=== PATIENT | female | born 1955 | race Caucasian/White ===

== ENCOUNTER 2017-06-27 07:43 | Emergency (ER) | END 2017-06-27 11:38 | disposition home or self-care (01) ==

== ENCOUNTER 2017-06-30 08:40 | Emergency (ER) | payer MEDICAID ==
[~2017-06-30] VITALS: Wt 61.0 kg
[~2017-06-30 08:40] MED LIST: ACET500C5 PO; ELEC100080 PO; IBUP-1542 PO; UDROBDM PO
[2017-06-30] MEDS ORDERED: ACETAMINOPHEN 500 MG TAB PO STA (09:15)
[2017-06-30] MEDS ORDERED: SOD CHLORIDE 0.9% 1,000 ML IV STA (09:15)
[2017-06-30 09:44] LABS: ADD UMIC NO; UR ASCORBIC ACID NEGATIVE (NEGATIVE); UR BILIRUBIN (Dip) NEGATIVE (NEGATIVE); UR BLOOD (Dip) NEGATIVE (NEGATIVE); UR CLARITY CLEAR (CLEAR); UR COLOR YELLOW (YELLOW); UR GLUCOSE (Dip) NEGATIVE (NEGATIVE); UR KETONES (Dip) NEGATIVE (NEGATIVE); UR LEUKOCYTE ESTERASE (Dip) NEGATIVE Leu/ul (NEGATIVE); UR NITRITE (Dip) NEGATIVE (NEGATIVE); UR SPECIFIC GRAVITY (Dip) 1.013 (1.003-1.030); UR TOTAL PROTEIN (Dip) NEGATIVE (NEGATIVE); UR UROBILINOGEN (Dip) 1+ mg/dL (NEGATIVE)
[2017-06-30 09:46] LABS: HEMOGLOBIN 12.7 g/dl (12.0-16.0); LYMPHOCYTES # 0.6 10^3/ul (0.8-2.9); RED CELL DISTRIBUTION WIDTH 12.8 % (11.5-14.5)
[2017-06-30 09:48] LABS: ABNORMAL IP MESSAGE 1
[2017-06-30 09:53] LABS: WHITE BLOOD COUNT 5.2 10^3/ul (4.8-10.8)
[2017-06-30 09:54] LABS: EOSINOPHILS % 0.2 % (0.0-7.0); HEMATOCRIT 36.5 % (37.0-47.0); LYMPHOCYTES % 10.7 % (15.0-51.0); MEAN CORPUSCULAR HEMOGLOBIN 33.7 pg (29.0-33.0); MEAN CORPUSCULAR HGB CONC 34.8 g/dl (32.0-37.0); MEAN CORPUSCULAR VOLUME 96.8 fl (82.0-101.0); MEAN PLATELET VOLUME 11.6 fl (7.4-10.4); MONOCYTE # 0.4 10^3/ul (0.3-0.9); MONOCYTES % 8.2 % (0.0-11.0); NEUTROPHIL # 4.2 10^3/ul (1.6-7.5); NEUTROPHILS % 80.5 % (39.0-77.0); PLATELET COUNT 128 10^3/UL (140-415); POSITIVE DIFF @See below; RED BLOOD COUNT 3.77 10^6/ul (4.20-5.40)
--- NOTE | 2017-06-30 10:16 | RADRPT ---
PROCEDURE: XR Chest. CLINICAL INDICATION: Shortness of breath TECHNIQUE: Single portable view of the chest was obtained COMPARISON: No priors for comparison FINDINGS: The trachea is midline. The cardiac silhouette and pulmonary vascularity are within normal limits. T he lungs are clear. The costophrenic angles are sharp. IMPRESSION: 1. No evidence of acute cardiopulmonary disease. RPTAT: AAPP Physician Ronny Date Time Electronically viewed and signed by Yuridia Crawford Physician on 06/30/2017 10:16 JL/
[2017-06-30 10:37] LABS: CALCIUM 9.2 mg/dl (8.4-10.2); CREATININE 0.65 mg/dl (0.44-1.00); POTASSIUM 4.1 mmol/L (3.5-5.1)
[2017-06-30] MEDS ORDERED: FLUT9.9S NASAL (10:48)
[2017-06-30] MEDS ORDERED: CETI10CA PO (10:48)
[2017-06-30] MEDS ORDERED: GUAI118L22 PO (10:48)
[2017-06-30 10:51] VITALS: BP 106/65; PULSE 76; RESP 18; TEMP 99.2
--- NOTE | 2017-06-30 11:06 | ERD ---
ER Documentation Chief Complaint Chief Complaint cough x 5 days HPI 61-year-old female comes emergency department with chief complaint of cough, congestion for about 5 days, she developed a fever yesterday. The patient states that she was seen here 2 days ago and was told that it was likely viral, and she is taking Tylenol and ibuprofen but states that her cough has not become better. The last time she took Tylenol was yesterday afternoon. She reports body aches, sore throat, congestion, dry cough. No hemoptysis, chest pain, shortness of breath. ROS All systems reviewed and are negative except as per history of present illness. Medications Home Meds Active Scripts Fluticasone Propionate (Flonase Allergy Relief) 9.9 Ml [place].susp, 1 SPRAY NASAL BID, #1 BOTTLE TO EACH NOSTRIL Prov:ALLEGRA CASTILLO PA-C 06/30/17 Cetirizine Hcl* (Zyrtec*) 10 Mg Capsule, 10 MG PO DAILY, #10 TAB.CHEW Prov:ALLEGRA CASTILLO PA-C 06/30/17 Guaifenesin/Codeine Phosphate (CHERATUSSIN AC SYRUP) 118 Ml Liquid, 5 ML PO Q4H Y for COUGH, #118 ML Prov:ALLEGRA CASTILLO PA-C 06/30/17 Guaifenesin-Dextromethorphan* (Robitussin* DM) 100MG/10MG/5ML Syrup, 10 ML PO Q6H Y for COUGH for 5 Days, ML Prov:SON GARSIA PA-C 06/27/17 Electrolyte,Oral (Pedialyte) 1,000 Ml Solution, 100 ML PO Q6 Y for FEVER, #1000 ML Prov:SON GARSIA PA-C 06/27/17 Acetaminophen* (Tylophen*) 500 Mg Capsule, 1 CAP PO Q6H Y for PAIN AND OR ELEVATED TEMP, #30 CAP Prov:SON GARSIA PA-C 06/27/17 Ibuprofen* (Motrin*) 600 Mg Tab, 600 MG PO Q6, #30 TAB Prov:SON GARSIA PA-C 06/27/17 Allergies Allergies: Coded Allergies: No Known Allergy (Unverified , 06/30/17) PMhx/Soc Medical and Surgical Hx: pt denies Medical Hx History of Surgery: Yes (Normal delivery x3) Anesthesia Reaction: No Hx Alcohol Use: No Hx Substance Use: No Hx Tobacco Use: No Smoking Status: Never smoker Physical Exam Vitals Vital Signs Date Time Temp Pulse Resp B/P Pulse Ox O2 Delivery O2 Flow Rate FiO2 06/30/17 10:51 99.2 76 18 106/65 100 Room Air 06/30/17 08:47 101.5 100 24 143/75 98 Physical Exam General: Well-developed, well-nourished. The patient appears in no acute distress. HEENT: Head is normocephalic, atraumatic. No scleral icterus. Pupils are equal , round, and reactive. Oral mucous membranes are moist. No pharyngeal erythema. Neck: Supple. Nontender. Lungs: Clear to auscultation. Normal air movement. Heart: Regular rate and rhythm. S1 and S2 are normal. No murmurs, gallops, or rubs. Abdomen: Soft, nontender, nondistended. Bowel sounds are normoactive. Extremities: No clubbing or cyanosis. Normal pulses. Moving extremities x 4. No weakness. Neurologic: Alert and oriented 3. No focal deficits. Skin: Normal turgor. No rash or lesions. Result Diagram: 06/30/1792906/30/1730 Results 24 hrs Laboratory Tests Test 06/30/17 09:25 06/30/17 09:30 Urine Color YELLOW Urine Clarity CLEAR Urine pH 7.0 Urine Specific [place] 1.013 Urine Ketones NEGATIVEmg/dL Urine Nitrite NEGATIVEmg/dL Urine Bilirubin NEGATIVEmg/dL Urine Urobilinogen 1+mg/dL Urine Leukocyte Esterase NEGATIVELeu/ul Urine Hemoglobin NEGATIVEmg/dL Urine Glucose NEGATIVEmg/dL Urine Total Protein NEGATIVEmg/dl White Blood Count 5.210^3/ul Red Blood Count 3.7710^6/ul Hemoglobin 12.7g/dl Hematocrit 36.5% Mean Corpuscular Volume 96.8fl Mean Corpuscular Hemoglobin 33.7pg Mean Corpuscular Hemoglobin Concent 34.8g/dl Red Cell Distribution Width 12.8% Platelet Count 39846^3/UL Mean Platelet Volume 11.6fl Neutrophils % 80.5% Lymphocytes % 10.7% Monocytes % 8.2% Eosinophils % 0.2% Basophils % 0.0% Nucleated Red Blood Cells % 0.0/100WBC Neutrophils # 4.210^3/ul Lymphocytes # 0.610^3/ul Monocytes # 0.410^3/ul Eosinophils # 0.010^3/ul Basophils # 0.010^3/ul Nucleated Red Blood Cells # 0.010^3/ul Sodium Level 138mmol/L Potassium Level 4.1mmol/L Chloride Level 102mmol/L Carbon Dioxide Level 25mmol/L Anion Gap 15 Blood Urea Nitrogen 5mg/dl Creatinine 0.65mg/dl Glucose Level 102mg/dl Calcium Level 9.2mg/dl Current Medications Medications (Trade) Dose Ordered Sig/Hamida Route PRN Reason Start Time Stop Time Status Last Admin Dose Admin Sodium Chloride (NS) 1,000 ml @ 1,000 mls/hr Q1H STAT IV 06/30/17 09:15 06/30/17 10:14 DC 06/30/17 09:33 Acetaminophen (Tylenol Tab) 1,000 mg ONCE STAT PO 06/30/17 09:15 06/30/17 09:17 DC 06/30/17 09:33 DIAGNOSTIC IMAGING REPORT Patient: BLANK SHUKLA : 1955 Age: 61 Sex: F MR #: [id number] DOS: 06/30/17914 Ordering MD: ALLEGRA CASTILLO PA-C Location: [facility] Room/Bed: PROCEDURE: XR Chest. CLINICAL INDICATION: Shortness of breath TECHNIQUE: Single portable view of the chest was obtained COMPARISON: No priors for comparison FINDINGS: The trachea is midline. The cardiac silhouette and pulmonary vascularity are within normal limits. The lungs are clear. The costophrenic angles are sharp. IMPRESSION: 1. No evidence of acute cardiopulmonary disease. RPTAT: AAPP Physician Ronny Date Time Electronically viewed and signed by Physician Ronny on 06/30/2017 10:16 JL/ CC: ALLEGRA CASTILLO PA-C Procedures/MDM ED COURSE: Patient was given Tylenol, as well as normal saline 1 L intravenously, labs, urine and chest x-ray obtained. Influenza a and B are negative. MEDICAL DECISION MAKING: The patient is a 61-year-old female who comes in with cough, congestion, body aches, most likely a viral syndrome. The patient's fever and the heart rate were treated with Tylenol as well as intravenous fluids. She was reassessed, the tachycardia resolved, she is afebrile, and her vital signs are stable and normal. Due to her age, lab work was initiated, there is no leukocytosis, no electrolyte abnormalities and her urine is negative for infection. A chest x- ray was performed that was normal. Although the influenza swab was negative on her previous visit, the patient did develop a fever after leaving there for repeat swab was taken it was negative. She is well appearing, this is most likely viral in etiology. Given her normal chest x-ray, normal vital signs, no signs of dehydration, I do not suspect sepsis, or pneumonia. The patient has a differential diagnosis of a viral upper respiratory infection, bacterial upper respiratory infection, bronchitis, pneumonia, pharyngitis, laryngitis, epiglottitis, croup, pneumonia. Patient has a normal pulmonary examination, clear breath sounds, normal pulse oximetry, with no corrective measures needed at this time. Fluids, rest, antipyretics were encouraged. Patient's blood pressure was elevated (>120/80) but appears stable without evidence of hypertension emergency or urgency. The patient was counseled about the risks of hypertension and urged to pursue outpatient monitoring and therapy within a week with their primary care physician. The case was reviewed and discussed with Dr. Girard who agrees with the plan of care including labs, treatment, and advanced imaging as appropriate. Departure Diagnosis: Primary Impression: Cough Condition: Good Patient Instructions: Viral Syndrome (Adult) ALLEGRA CASTILLO PA-C Jun 30, 2017 11:06
== END 2017-06-30 11:06 | disposition home or self-care (01) ==
LOC: FTE 08:40
DX: R05 Cough (principal)
CPT/HCPCS: 36415; 71010; 80048; 81003; 85025; 87400; 96360; J7030; Z7502; Z7610